=== PATIENT | male | born 1990 | race Caucasian/White ===

== ENCOUNTER 2016-10-01 13:34 | Emergency (ER) | payer BC, OTHER ==
[2016-10-01 13:50] VITALS: BP 131/89
--- NOTE | 2016-10-01 14:18 | UC ---
Dental HPI - HPI Summary HPI Summary: complaint of dental pain upper left jaw that started approx 2 months ago went to dentist and given referral for wisdom tooth removal and dental abscess treatment never followed up because pain resolved on its own dental pain started again this morning that has worsened throughout the day called dentist and has appt on saturday took some ibuprofen 650 at 9AM this morning with out relief denies fever and chills - History of Current Complaint Chief Complaint: UCDentalProblem Stated Complaint: DENTAL Time Seen by Provider: 10/01/16 14:10 Hx Obtained From: Patient - Allergies/Home Medications Allergies/Adverse Reactions: Allergies Allergy/AdvReac Type Severity Reaction Status Date / Time No Known Allergies Allergy Verified 10/01/16 13:44 Home Medications: Home Medications Ibuprofen [Advil] 800 mg PO ONCE PRN 10/01/16 [History Confirmed 10/01/16] PMH/Surg Hx/FS Hx/Imm Hx Previously Healthy: Yes - Surgical History Surgical History: None - Family History Known Family History: Negative: Cardiac Disease, Hypertension, Diabetes - Social History Occupation: Employed Full-time Lives: With Family Alcohol Use: None Substance Use Type: None Smoking Status (MU): Heavy Every Day Tobacco Smoker Type: Cigarettes, Cigars Amount Used/How Often: 1/2 pack per day Length of Time of Smoking/Using Tobacco: 9 yrs Have You Smoked in the Last Year: Yes Cessation Counseling: Patient Advised to Stop - Immunization History Most Recent Influenza Vaccination: NO Review of Systems Constitutional: Negative Skin: Negative Eyes: Negative ENT: Dental Pain Respiratory: Negative Cardiovascular: Negative Gastrointestinal: Negative Genitourinary: Negative Motor: Negative Neurovascular: Negative Musculoskeletal: Negative Neurological: Negative Psychological: Negative All Other Systems Reviewed And Are Negative: Yes Physical Exam Triage Information Reviewed: Yes Appearance: Well-Nourished, Pain Distress Vital Signs: Initial Vital Signs Temp 99 F 10/01/16 13:46 Pulse 73 10/01/16 13:46 Resp 14 10/01/16 13:46 BP 131/89 10/01/16 13:46 Pulse Ox 99 10/01/16 13:46 Vital Signs Reviewed: Yes Eyes: Positive: Conjunctiva Clear ENT: Positive: Pharynx normal, TMs normal, Other: - sedema and erythema in gums left upper jaw. Negative: Nasal congestion Dental: Positive: Dental Fracture @ - 14 Neck: Positive: No Lymphadenopathy Respiratory: Positive: Lungs clear, Normal breath sounds, No respiratory distress Cardiovascular: Positive: RRR, No Murmur Abdomen Description: Positive: Nontender, Soft Bowel Sounds: Positive: Present Musculoskeletal Exam: Normal Neurological: Positive: Alert Psychological Exam: Normal Skin Exam: Normal Dental Complaint Course/Dx - Course Course Of Treatment: exam completed. will rx for antibiotics and painmedication for 2 days unitl antibiotics control infection - Differential Dx/Diagnosis Differential Diagnosis/Dx: Dental Abscess, Fractured Tooth Provider Diagnoses: dental abscess Discharge - Discharge Plan Condition: Stable Disposition: HOME Prescriptions: Amoxicillin (*) [Amoxicillin 875 MG (*)] 875 mg PO BID #20 tab oxyCODONE/Acetamin 5/325 MG* [Percocet 5/325 TAB*] 1 tab PO Q4H PRN #12 tab MDD 6 PRN Reason: Pain (Dental) Patient Education Materials: Dental Abscess (ED) Referrals: No Primary Care Phys,NOPCP [Primary Care Provider] - [facility] [place] [facility] [Outside] Additional Instructions: Keep your appointment on 10/05/16 with your dentist Please take antibiotic as directed, use pain medication as needed Increase fluids and rest Take acetaminophen or ibuprofen for pain after the percocet is gone Please review your discharge instructions. If your symptoms do not improve please call your primary care provider or return to urgent care. Your blood pressure is pre-hypertensive reading. Please contact your primary care provider within 1 day -4 weeks for further evaluation
== END 2016-10-01 14:37 | disposition home or self-care (01) ==
LOC: UCCORT 13:34
DX: K04.7 Periapical abscess without sinus (principal); F17.210 Nicotine dependence, cigarettes, uncomplicated
CPT/HCPCS: 99202; G0463

== ENCOUNTER 2017-03-14 09:14 | Emergency (ER) | payer BC ==
[2017-03-14 09:29] VITALS: BP 127/82
--- NOTE | 2017-03-14 10:05 | UC ---
Cardiac HPI - HPI Summary HPI Summary: 27 year old male with history of smoking. Cough today, yesterday sore throat and headache; today chest congestion, CP last night s/p smoking, CP worsens with cough. Cp currently and SOB and pain worse with movement. Has had normal echo this past summer. [ End ] - History of Current Complaint Chief Complaint: UCRespiratory Stated Complaint: CHEST PAINS,SINUS,SORE THROAT Time Seen by Provider: 03/14/17 09:33 Hx Obtained From: Patient Onset/Duration: Gradual Onset Timing: Constant Initial Severity: Mild Current Severity: Moderate Aggravating Factor(s): Exertion, Position Alleviating Factor(s): Rest - Allergy/Home Medications Allergies/Adverse Reactions: Allergies Allergy/AdvReac Type Severity Reaction Status Date / Time No Known Allergies Allergy Verified 03/14/17 09:29 Home Medications: Home Medications [id number]-[id number]-EL [Nighttime Cold Medicine] 1 liq PO BEDTIME PRN [History Confirmed 03/14/17] PMH/Surg Hx/FS Hx/Imm Hx Previously Healthy: Yes - Surgical History Surgical History: None - Family History Known Family History: Negative: Cardiac Disease, Hypertension, Diabetes - Social History Occupation: Employed Full-time Lives: With Family Alcohol Use: Weekly Alcohol Amount: 10-12 Substance Use Type: None Smoking Status (MU): Heavy Every Day Tobacco Smoker Type: Cigarettes, Cigars Amount Used/How Often: 1/2 pack per day Length of Time of Smoking/Using Tobacco: 9 yrs Have You Smoked in the Last Year: Yes Cessation Counseling: Patient Advised to Stop - Immunization History Most Recent Influenza Vaccination: NO Review of Systems Respiratory: Shortness Of Breath Cardiovascular: Chest Pain All Other Systems Reviewed And Are Negative: Yes Physical Exam Triage Information Reviewed: Yes Appearance: Well-Appearing, No Pain Distress, Well-Nourished Vital Signs: Initial Vital Signs Temp 98 F 03/14/17 09:20 Pulse 77 03/14/17 09:20 Resp 22 03/14/17 09:20 BP 127/82 03/14/17 09:20 Pulse Ox 99 03/14/17 09:20 Vital Signs Reviewed: Yes Eye Exam: Normal ENT Exam: Normal Dental Exam: Normal Neck exam: Normal Neck: Positive: 1 Respiratory Exam: Normal Cardiovascular Exam: Normal Abdominal Exam: Normal Musculoskeletal Exam: Normal Neurological Exam: Normal Psychological Exam: Normal Skin Exam: Normal - Assessment/Plan Course Of Treatment: to go to ED. spoke with Dr Hayes who will accept pt stable vitals. declined ambulance. EKG with ST changes that were non specific and not on previous EKG - Clinical Impression Provider Diagnoses: chest pain and shortness of breath Discharge - Discharge Plan Condition: Guarded Disposition: TRANS HIGHER LVL OF CARE FAC Patient Education Materials: Chest Pain (ED)
[2017-03-14] MEDS ORDERED: Aspirin TAB* 325 MG PO ONE (10:13)
== END 2017-03-14 10:29 | disposition short-term general hospital (02) ==
LOC: UCCORT 09:14
DX: R07.9 Chest pain, unspecified (principal); R06.02 Shortness of breath; F17.210 Nicotine dependence, cigarettes, uncomplicated
CPT/HCPCS: 93005; 99212; G0463

== ENCOUNTER → 2017-07-05 10:01 | Emergency (ER) | payer BC | END | disposition left against medical advice (07) | LOC: UCCORT 10:01 | DX: R10.9 Unspecified abdominal pain (principal); M54.9 Dorsalgia, unspecified; Z53.21 Procedure and treatment not carried out due to patient leaving prior to being seen by health care provider ==

== ENCOUNTER 2017-07-08 07:51 | Emergency (ER) | payer BC ==
[2017-07-08 08:15] VITALS: BP 127/82
--- NOTE | 2017-07-08 08:50 | ED ---
Respiratory - HPI Summary HPI Summary: 27 yr old male with the complaint of cough, muscle aches, chills, runny nose. Onset a couple of days ago. He is concerned he may have the flu. He works in warehouse area. Denies other complaints. - History of Current Complaint Chief Complaint: UCRespiratory Stated Complaint: CONGESTION,COUGH,FATIGUE Time Seen by Provider: 07/08/17 08:24 Pain Intensity: 4 - Allergy/Home Medications Allergies/Adverse Reactions: Allergies Allergy/AdvReac Type Severity Reaction Status Date / Time No Known Allergies Allergy Verified 07/08/17 08:06 PMH/Surg Hx/FS Hx/Imm Hx Infectious Disease History: No Infectious Disease History: Denies: Traveled Outside the [place] in Last 30 Days - Family History Known Family History: Negative: Cardiac Disease, Hypertension, Diabetes - Social History Occupation: Employed Full-time Alcohol Use: Weekly Alcohol Amount: 10-12 Substance Use Type: Reports: None Smoking Status (MU): Heavy Every Day Tobacco Smoker Type: Cigarettes, Cigars Amount Used/How Often: 1/2 pack per day Length of Time of Smoking/Using Tobacco: 9 yrs Have You Smoked in the Last Year: Yes Review of Systems Positive: Cough All Other Systems Reviewed And Are Negative: Yes Physical Exam Triage Information Reviewed: Yes Vital Signs On Initial Exam: Initial Vitals Temp Pulse Resp BP Pulse Ox 98.8 F 92 20 127/82 97 07/08/17 08:09 07/08/17 08:09 07/08/17 08:09 07/08/17 08:09 07/08/17 08:09 Appearance: Positive: Well-Appearing, No Pain Distress Skin: Positive: Warm, Skin Color Reflects Adequate Perfusion Head/Face: Positive: Normal Head/Face Inspection Eyes: Positive: EOMI ENT: Positive: TMs normal Neck: Positive: Nontender Respiratory/Lung Sounds: Positive: Clear to Auscultation, Breath Sounds Present Cardiovascular: Positive: RRR. Negative: Murmur Abdomen Description: Positive: Nontender Musculoskeletal: Positive: Strength/ROM Intact Neurological: Positive: Sensory/Motor Intact, Alert, Oriented to Person Place, Time, CN Intact II-III Psychiatric: Positive: Normal - [place] Coma Scale Best Eye Response: 4 - Spontaneous Best Motor Response: 6 - Obeys Commands Best Verbal Response: 5 - Oriented Coma Scale Total: 15 Diagnostics - Vital Signs Vital Signs Temp Pulse Resp BP Pulse Ox 07/08/17 08:09 98.8 F 92 20 127/82 97 - Laboratory Lab Statement: Any lab studies that have been ordered have been reviewed, and results considered in the medical decision making process. Disposition - Course Course Of Treatment: 27 yr old with upper respirator infection symptoms. - Diagnoses Provider Diagnoses: Upper respiratory infection Discharge - Discharge Plan Condition: Good Disposition: HOME Patient Education Materials: Upper Respiratory Infection (ED) Forms: *Work Release Referrals: [facility] [place] [facility] [Outside] No Primary Care Phys,NOPCP [Primary Care Provider] -
== END 2017-07-08 09:04 | disposition home or self-care (01) ==
LOC: UCCORT 07:51
DX: J06.9 Acute upper respiratory infection, unspecified (principal); F17.210 Nicotine dependence, cigarettes, uncomplicated
CPT/HCPCS: 87502; 99211; G0463